=== PATIENT | male | born 1930 | race Caucasian/White ===

== ENCOUNTER → 2017-01-21 | Outpatient (CLI) | payer MEDICARE, BC ==
[~2017-01-21] MED LIST: AMLO2.5T PO; ATOR10TA PO; CLOB15CR19 TP; CLOP75TA22 PO; DIPH25CA61 PO; DONE10TA30 PO; ESOM40CA PO; FURO-92 PO; HYDR-3138 PO; HYDR12.53 PO; LISI5TAB7 PO; METO25TA35 PO; POTA20TA91 PO
== END | disposition home or self-care (01) ==
LOC: CVU 06:53
PROVIDERS: ATTEND Internal Medicine Cardiovascular Disease
DX: R60.0 Localized edema (principal); I87.2 Venous insufficiency (chronic) (peripheral)
CPT/HCPCS: 93970

== ENCOUNTER 2017-02-06 10:23 | Day surgery (SDC) | payer MEDICARE, BC ==
[~2017-02-06] VITALS: Ht 193 cm; Wt 90.9 kg
[~2017-02-06 10:23] MED LIST changes: +AMIL5TAB2 PO; +AMLO5TAB4 PO; +ASPI-621 PO; +FURO-93 PO; +MEMA14CA PO; +POTA10CA PO
[2017-02-06 10:59] VITALS: BP 151/91
[2017-02-06] MEDS ORDERED: SODIUM CHLORIDE 0.9% 1,000 ML IV SCH (11:00)
[2017-02-06] MEDS ORDERED: SERT25TA PO (11:44)
[2017-02-06] MEDS ORDERED: PROPOFOL 10 MG/ML, 20ML ONE (12:02)
== END 2017-02-06 14:52 | disposition home or self-care (01) ==
LOC: CACL 10:23
PROVIDERS: ATTEND Internal Medicine Cardiovascular Disease
DX: I34.0 Nonrheumatic mitral (valve) insufficiency (principal); I35.1 Nonrheumatic aortic (valve) insufficiency; I36.1 Nonrheumatic tricuspid (valve) insufficiency; Z86.73 Personal history of transient ischemic attack (TIA), and cerebral infarction without residual deficits; I25.10 Atherosclerotic heart disease of native coronary artery without angina pectoris; I25.2 Old myocardial infarction; Z95.1 Presence of aortocoronary bypass graft; I42.9 Cardiomyopathy, unspecified; Z95.0 Presence of cardiac pacemaker; Z87.891 Personal history of nicotine dependence; E11.22 Type 2 diabetes mellitus with diabetic chronic kidney disease; I12.9 Hypertensive chronic kidney disease with stage 1 through stage 4 chronic kidney disease, or unspecified chronic kidney disease; N18.3 Chronic kidney disease, stage 3 (moderate); E78.2 Mixed hyperlipidemia; F03.90 Unspecified dementia, unspecified severity, without behavioral disturbance, psychotic disturbance, mood disturbance, and anxiety; K21.9 Gastro-esophageal reflux disease without esophagitis; Z82.49 Family history of ischemic heart disease and other diseases of the circulatory system; Z79.01 Long term (current) use of anticoagulants
CPT/HCPCS: 93312; 93325; J2704

== ENCOUNTER → 2017-02-24 | Outpatient (CLI) | payer MEDICARE, BC ==
[~2017-02-24] MED LIST changes: +SERT25TA PO
[2017-02-24 13:32] LABS: ASPARTATE AMINO TRANSFERASE 39 U/L (15-37); BLOOD UREA NITROGEN 35 mg/dL (7-18)
== END | disposition home or self-care (01) ==
LOC: CFH 06:43
PROVIDERS: ATTEND Internal Medicine
DX: I12.9 Hypertensive chronic kidney disease with stage 1 through stage 4 chronic kidney disease, or unspecified chronic kidney disease (principal); N18.9 Chronic kidney disease, unspecified; I25.5 Ischemic cardiomyopathy; E78.2 Mixed hyperlipidemia; J44.9 Chronic obstructive pulmonary disease, unspecified; K21.9 Gastro-esophageal reflux disease without esophagitis
CPT/HCPCS: 36415; 80053; 80061; 82306; 82570; 83735; 83970; 84100; 84156; 84550; 85025

== ENCOUNTER → 2017-06-26 | Outpatient (CLI) | payer MEDICARE, BC ==
[~2017-06-26] MED LIST changes: -CLOP75TA22 PO; +CLOP75TA52 PO; -DONE10TA30 PO; +DONE10TA56 PO; -HYDR-3138 PO; +HYDR-3237 PO
[2017-06-26 13:25] LABS: HEMATOCRIT 45.6 % (39.2-51.8); HEMOGLOBIN 15.6 g/dL (13.7-18.0); WHITE BLOOD COUNT 7.3 x10^3/uL (3.4-10)
[2017-06-26 13:34] LABS: BLOOD UREA NITROGEN 32 mg/dL (7-18)
[2017-06-26 13:42] LABS: ASPARTATE AMINO TRANSFERASE 23 U/L (15-37)
== END | disposition home or self-care (01) ==
LOC: CFH 06:45
PROVIDERS: ATTEND Internal Medicine
DX: I25.10 Atherosclerotic heart disease of native coronary artery without angina pectoris (principal); F32.2 Major depressive disorder, single episode, severe without psychotic features; I12.9 Hypertensive chronic kidney disease with stage 1 through stage 4 chronic kidney disease, or unspecified chronic kidney disease; I63.9 Cerebral infarction, unspecified; I87.2 Venous insufficiency (chronic) (peripheral); N18.9 Chronic kidney disease, unspecified
CPT/HCPCS: 36415; 80053; 80061; 83970; 85027

== ENCOUNTER 2018-09-14 06:25 | Inpatient (IN) | payer MEDICARE, BC ==
[~2018-09-14] VITALS: Ht 188 cm; Wt 90.3 kg
[~2018-09-14 06:25] MED LIST changes: -AMLO2.5T PO; +AMLO2.5T3 PO; -ASPI-621 PO; +ASPI81TA45 PO; +DIAZ2TAB3 PO; +HYDR12.517 PO; -HYDR12.53 PO; +METO100T7 PO; +RIVA20TA PO
[2018-09-14 06:47] LABS: BASOPHILS # (AUTO) 0.05 x10^3/uL (0-0.1); BASOPHILS % (AUTO) 1 % (0-1); EOSINOPHILS # (AUTO) 0.09 x10^3/uL (0-0.4); EOSINOPHILS % (AUTO) 1 % (1-7); LYMPHOCYTES % (AUTO) 36 % (22-44); MD NO; MEAN CORPUSCULAR HEMOGLOBIN 32.1 pg (27.5-34.5); MEAN CORPUSCULAR HGB CONC 32.8 g/dL (33.2-36.2); MEAN CORPUSCULAR VOLUME 97.8 fL (81-97); MEAN PLATELET VOLUME 9.4 fL (7.4-10.4); MONOCYTES # (AUTO) 0.59 x10^3/uL (0.2-0.8); MONOCYTES % (AUTO) 10 % (2-9); NEUTROPHILS # (AUTO) 3.06 x10^3/uL (1.8-6.8); NEUTROPHILS % (AUTO) 52 % (42-75); PLATELET COUNT 154 x10^3/uL (130-400); RED BLOOD COUNT 4.79 x10^6/uL (4.38-5.82); RED CELL DISTRIBUTION WIDTH 14.2 % (9.4-14.8)
[2018-09-14 06:57] LABS: ALANINE AMINOTRANSFERASE 36 U/L (12-78); ANION GAP 9 mmol/L (5-15); CHLORIDE 111 mmol/L (98-107); CREATININE 2.23 mg/dL (0.7-1.3)
[2018-09-14 06:59] LABS: ALKALINE PHOSPHATASE 98 U/L (45-117); TOTAL PROTEIN 7.6 g/dL (6.4-8.2)
[2018-09-14] MEDS ORDERED: HEPARIN 5,000 UNITS/ML, 1ML IV ONE (07:00)
[2018-09-14] MEDS ORDERED: HEPARIN 5,000 UNITS/ML, 1ML ONE ×2 (07:09→07:15)
[2018-09-14] MEDS ORDERED: HEPARIN 25,000 UNITS/500ML PMX 500 ML ONE (07:10)
[2018-09-14 07:24] LABS: INTERNATIONAL NORMALIZED RATIO 1.14 (0.93-1.1)
[2018-09-14] MEDS: HEPARIN 25,000 UNITS/500ML PMX 500 ML IV PRN (07:42)
[2018-09-14] MEDS ORDERED: THROMBIN 5,000 UNIT VIAL TP ONE ×2 (08:00→09:32)
[2018-09-14] MEDS ORDERED: LIDOCAINE/PF 2%-EPI 1:200K, 10ML ONE (08:04)
[2018-09-14] MEDS ORDERED: LIDOCAINE/MPF 2%-EPI 1:200K, 20 ML ONE (08:04)
[2018-09-14] MEDS ORDERED: FENTANYL PF 250 MCG/5ML ONE (08:18)
[2018-09-14] MEDS ORDERED: MIDAZOLAM 1 MG/ML, 2ML ONE (08:18)
[2018-09-14] MEDS ORDERED: hydrALAzine 20 MG/ML, 1ML IVPush PRN (08:30)
[2018-09-14] MEDS ORDERED: ONDANSETRON 2MG/ML, 2ML IVPush PRN (08:30)
[2018-09-14] MEDS ORDERED: ONDANSETRON ODT 4 MG PO PRN (08:30)
[2018-09-14] MEDS ORDERED: LABETALOL 5MG/ML, 20ML IVPush PRN (08:30)
[2018-09-14] MEDS ORDERED: CEFAZOLIN 1,000 MG ONE (08:36)
[2018-09-14 08:46] LABS: THYROID STIMULATING HORMONE 2.19 mIU/L (0.358-3.740)
[2018-09-14] MEDS ORDERED: PHENYLEPHRINE 10 MG/ML ONE (08:57)
[2018-09-14] MEDS ORDERED: LIDOCAINE-MPF 2% ,5ML ONE (08:57)
[2018-09-14] MEDS ORDERED: WATER-INJECTION,STERILE 10 ML IV ONE (08:57)
[2018-09-14] MEDS ORDERED: ONDANSETRON 2MG/ML, 2ML ONE (08:57)
[2018-09-14] MEDS ORDERED: DEXAMETHASONE 4 MG/ML, 1ML ONE (08:57)
[2018-09-14] MEDS ORDERED: PROPOFOL 10 MG/ML, 20ML ONE (08:57)
[2018-09-14] MEDS ORDERED: SUCCINYLCHOLINE 20 MG/ML, 10ML ONE (08:57)
[2018-09-14] MEDS ORDERED: LIDOCAINE 1%, 50ML INFIL ONE (08:59)
[2018-09-14] MEDS ORDERED: HEPARIN 1,000 UNITS/ML, 10ML IV ONE (09:09)
[2018-09-14] MEDS ORDERED: ONDANSETRON 2MG/ML, 2ML IV PRN (09:30)
[2018-09-14] MEDS ORDERED: HALOPERIDOL 5 MG/ML IV PRN (09:30)
[2018-09-14] MEDS ORDERED: FENTANYL PF 100 MCG/2ML IV PRN (09:30)
[2018-09-14] MEDS ORDERED: MEPERIDINE/PF 25MG/0.5ML IVPush PRN (09:30)
[2018-09-14] MEDS ORDERED: HYDROmorphone 2 MG/ML, 1ML IVPush PRN (09:30)
[2018-09-14] MEDS ORDERED: OXYcodone 5 MG/5 ML ORAL.SOL UDC PO PRN (09:30)
[2018-09-14] MEDS ORDERED: LABETALOL 5MG/ML, 20ML IV PRN (09:30)
[2018-09-14] MEDS ORDERED: hydrALAzine 20 MG/ML, 1ML IV PRN (09:30)
[2018-09-14] MEDS ORDERED: ACETAMINOPHEN 325 MG TABLET PO PRN (09:30)
[2018-09-14] MEDS ORDERED: OMNIPAQUE 350 MG/ML, 50 ML BOTTLE IV ONE (09:33)
[2018-09-14] MEDS ORDERED: VISIPAQUE 270 MG/ML, 50ML BOTTLE ONE (10:33)
[2018-09-14 13:53] VITALS: BP 163/87
[2018-09-14] MEDS ORDERED: HEPARIN 1,000 UNITS/ML, 10ML ONE (14:37)
[2018-09-14] MEDS ORDERED: LIDOCAINE/PF 1%, 30ML ONE (14:37)
[2018-09-14 22:50] VITALS: BP 143/76
[2018-09-15 00:31] VITALS: BP 129/64
[2018-09-15] MEDS: ACETAMINOPHEN 325 MG TABLET PO PRN ×5 (03:12→23:11)
[2018-09-15 03:51] LABS: ANION GAP 10 mmol/L (5-15); CALCIUM 8.8 mg/dL (8.5-10.1); CHLORIDE 110 mmol/L (98-107); CREATININE 2.37 mg/dL (0.7-1.3)
[2018-09-15 03:52] LABS: BASOPHILS # (AUTO) 0.05 x10^3/uL (0-0.1); BASOPHILS % (AUTO) 0 % (0-1); EOSINOPHILS % (AUTO) 0 % (1-7); LYMPHOCYTES # (AUTO) 2.28 x10^3/uL (1-3.4); LYMPHOCYTES % (AUTO) 18 % (22-44); MD NO; MEAN CORPUSCULAR HEMOGLOBIN 32.5 pg (27.5-34.5); MEAN CORPUSCULAR HGB CONC 33.4 g/dL (33.2-36.2); MEAN PLATELET VOLUME 9.4 fL (7.4-10.4); MONOCYTES # (AUTO) 0.92 x10^3/uL (0.2-0.8); MONOCYTES % (AUTO) 7 % (2-9); NEUTROPHILS # (AUTO) 9.55 x10^3/uL (1.8-6.8); NEUTROPHILS % (AUTO) 75 % (42-75); PLATELET COUNT 159 x10^3/uL (130-400); RED BLOOD COUNT 3.81 x10^6/uL (4.38-5.82); RED CELL DISTRIBUTION WIDTH 14.1 % (9.4-14.8)
[2018-09-15] MEDS: HEPARIN 25,000 UNITS/500ML PMX 500 ML IV PRN (05:28)
[2018-09-15 07:36] VITALS: BP 132/69
[2018-09-15 13:35] VITALS: BP 147/107
[2018-09-15 19:23] VITALS: BP 144/64
[2018-09-16 02:47] VITALS: BP 160/73
[2018-09-16] MEDS: HEPARIN 25,000 UNITS/500ML PMX 500 ML IV PRN (03:33)
[2018-09-16] MEDS: ACETAMINOPHEN 325 MG TABLET PO PRN ×3 (05:24→18:06)
[2018-09-16] MEDS: HEPARIN 5,000 UNITS/ML, 1ML IV PRN (06:30)
[2018-09-16 08:04] VITALS: BP 151/66
[2018-09-16 13:28] VITALS: BP 149/68
[2018-09-16 20:12] VITALS: BP 150/56
[2018-09-17] MEDS: HEPARIN 25,000 UNITS/500ML PMX 500 ML IV PRN (00:08)
[2018-09-17 02:04] VITALS: BP 167/71
[2018-09-17] MEDS: ACETAMINOPHEN 325 MG TABLET PO PRN ×2 (02:10→09:53)
[2018-09-17 06:55] VITALS: BP 139/68
[2018-09-17 06:56] VITALS: BP 108/71
[2018-09-17] MEDS: HEPARIN 5,000 UNITS/ML, 1ML IV PRN (07:32)
== END 2018-09-17 16:17 | disposition hospice, home (50) | DRG 252 ==
LOC: OR 07:43 → EDIP 07:50 → 4WST 10:48 → 4EST 11:10
PROVIDERS: ADMIT Internal Medicine; ATTEND Internal Medicine
PROC: B31J1ZZ Fluoroscopy of Left Upper Extremity Arteries using Low Osmolar Contrast (ICD-10-PCS; 2018-09-14)
PROC: 03C80ZZ Extirpation of Matter from Left Brachial Artery, Open Approach (ICD-10-PCS; principal; 2018-09-14 07:30)
DX: I74.2 Embolism and thrombosis of arteries of the upper extremities (principal); J96.01 Acute respiratory failure with hypoxia; D68.59 Other primary thrombophilia; I13.0 Hypertensive heart and chronic kidney disease with heart failure and stage 1 through stage 4 chronic kidney disease, or unspecified chronic kidney disease; Q21.1 Atrial septal defect; I50.9 Heart failure, unspecified; E78.00 Pure hypercholesterolemia, unspecified; E78.5 Hyperlipidemia, unspecified; F01.50 Vascular dementia, unspecified severity, without behavioral disturbance, psychotic disturbance, mood disturbance, and anxiety; I25.10 Atherosclerotic heart disease of native coronary artery without angina pectoris; I51.3 Intracardiac thrombosis, not elsewhere classified; I73.9 Peripheral vascular disease, unspecified; N18.3 Chronic kidney disease, stage 3 (moderate); M54.9 Dorsalgia, unspecified; R29.6 Repeated falls; Z51.5 Encounter for palliative care; Z66 Do not resuscitate; Z79.01 Long term (current) use of anticoagulants; Z86.718 Personal history of other venous thrombosis and embolism; Z86.73 Personal history of transient ischemic attack (TIA), and cerebral infarction without residual deficits; I25.2 Old myocardial infarction; Z87.891 Personal history of nicotine dependence; Z95.0 Presence of cardiac pacemaker; Z95.1 Presence of aortocoronary bypass graft; Z98.49 Cataract extraction status, unspecified eye; Z90.49 Acquired absence of other specified parts of digestive tract; Z79.899 Other long term (current) drug therapy; Z90.79 Acquired absence of other genital organ(s); Z91.018 Allergy to other foods
CPT/HCPCS: 36415; 75710; 80048; 80053; 83735; 84100; 84443; 85025; 85520; 85610; 93005; 93931; 96374; 99285; G0378; J0690; J1100; J1644; J2250; J2405; J2704; J3010; J3490; Q0162; Q9966; Q9967; C1757; J0330; J2370